=== PATIENT | female | born 1955 | race Caucasian/White ===

== ENCOUNTER → 2018-01-25 | Outpatient (CLI) | payer OTHER ==
[~2018-01-25] VITALS: Ht 174 cm; Wt 92.1 kg
[~2018-01-25] MED LIST: CENTRUM WOMEN1 EACH PO; OMEGA-3 KRILL1 EAC1 PO; SYNTHROID88 MCG PO; TART CHERRY CA1 EACH PO; TURMERIC COMPL1 EACH PO; VITAMIN B-125000 MC1 PO; VITAMIN D35000 UNIT PO
== END | disposition home or self-care (01) ==
LOC: AMB 12-24 08:30
DX: Z12.11 Encounter for screening for malignant neoplasm of colon (principal); D12.3 Benign neoplasm of transverse colon; D12.8 Benign neoplasm of rectum; D12.2 Benign neoplasm of ascending colon; Z86.010 Personal history of colon polyps
CPT/HCPCS: 88305